=== PATIENT | female | born 2000 | race Caucasian/White ===

== ENCOUNTER 2020-07-03 06:49 | Emergency (ER) | payer MEDICAID ==
[~2020-07-03] VITALS: Ht 157.5 cm; Wt 55.8 kg
[2020-07-03 07:11] VITALS: BP 103/62
--- NOTE | 2020-07-03 07:16 | NUR ---
ARRIVAL PATIENT ARRIVED TO ED8 AMBULATORY, C/O OF SMALL AMOUNT OF VAGINAL BLEEDING THIS MORNING, PATIENT IS APPROX 11 WEEKS , STATES SHE WAS TOLD SHE HAD A SMALL BLEED FROM ONE OF HER OVARIES AND WAS TOLD BY HER OBGYN THAT IT WOULD FIX ITSELF, TODAY SHE NOTICED A SMALL AMOUNT OF BLOOD WHEN SHE CLEANED HERSELF, BECAME CONCERNED AND CAME TO THE ED FOR EVAL, DOCTOR MARÍA NOTIFIED OF PATIENT'S ARRIVAL.
--- NOTE | 2020-07-03 07:24 | NUR ---
ULTRASOUND SONU NOTIFIED OF PATIENT ORDER
--- NOTE | 2020-07-03 07:33 | ER.PDOC ---
General Chief Complaint: less 20 wks Stated Complaint: FEMALE ,ABD PAIN Time seen by MD: 07:00 Source: patient History of Present Illness Initial Comments This 20-year old G2, P1 11-week young lady comes in with complaint of right lower quadrant abdominal pain. She stated she started with some crampy mild pain about midnight last night. She stated when she woke up this morning the pain was more severe. [place] right [place] 's job. She indicated that she had a visit with her OB before leaving home and had a normal heart tones at 168. She was told that the ultraso und was abnormal but she was not quite clear what the abnormal finding were. Patient indicated no complications with her prior . Her baby is now 8 months old. Timing/Duration: this morning Severity/Quality: moderate Location of Pain: abdominal pain, pelvic pain (Patient indicated when she went to the bathroom this morning, she had some blood that was passing from her vagina. She denied any dysuria frequency or urgency that would suggest a urinary tract infection) Vaginal Bleed: abnormal bleeding LMP (females 10-50): (LMP 04/15/2020) Test: clinic Care: clinic Sexual [place] History: single partner Associated Symptoms: abdominal pain Prior symptoms/Treatment: Recenly Seen Allergies: Coded Allergies: No Known Allergies (Unverified , 07/03/20) Past Medical History Medical History: no pertinent history Surgical History: no surgical history Social History Smoking: non-smoker Alcohol Use: none Drug Use: none Review of Systems Genitourinary: see HPI All Other Systems: Reviewed and Negative Physical Exam General Appearance: No Apparent Distress, WD/WN EENT: eyes nml inspection, nml ENT inspection, pharynx nml Neck: nml inspection, non-tender Cardiovascular/Respiratory: Regular Rate, Rhythm, No M/R/G, Normal Peripheral Pulses, No JVD, Normal Breath Sounds, No Respiratory Distress Back: nml inspection Extremities: Normal Range of Motion, Non-Tender, Normal Inspection, No Pedal Edema, No Calf Tenderness, Normal Capillary Refill Neurologic/Psychiatric: powder coater II-XII NML as Tested, No Motor/Sensory Deficits, Alert, Normal Mood/Affect, Oriented x 3 Skin: Normal Color, Warm/Dry Lymphatic: No Adenopathy Results/Orders Results/Orders Orders - DOMINICK DANIEL MD Abo/Rh Type (07/03/20 07:17) Urinalysis (07/03/20 07:17) Saline Lock (07/03/20 07:26) Us Preg Before 14 Wks (07/03/20 07:17) Us Tv-Ob (07/03/20 07:37) Vital Signs Date Time Temp Pulse Resp B/P (MAP) Pulse Ox O2 Delivery O2 Flow Rate FiO2 07/03/20 09:00 98.1 95 18 138/67 (90) 98 Room Air 07/03/20 07:11 98.1 99 18 103/62 (76) 98 Room Air 07/03/20 07:11 98.1 99 18 07/03/20 07:11 98.1 99 18 98 Laboratory Tests Test 07/03/20 07:36 Urine Collection Type UNKNOWN Urine Color YELLOW Urine Appearance CLEAR Urine Bilirubin NEGATIVE (NEGATIVE) Urine Ketones NEGATIVE (NEGATIVE) Urine Specific Smoot 1.020 (1.005-1.030) Urine pH 7.0 (4.5-8.0) Urine Protein NEGATIVE (NEGATIVE) Urine Urobilinogen 0.2 E.U./dL (0.2) Urine Nitrate NEGATIVE (NEGATIVE) Urine Leukocyte Esterase NEGATIVE (NEGATIVE) Urine Glucose (Auto)(UA) NEGATIVE (NEGATIVE) Urine Blood SMALL (NEGATIVE) H Urine RBC 0-2 RBC/HPF (NONE SEEN) Urine WBC NONE SEEN WBC/HPF (0-2) Urine Squamous Epithelial Cells RARE #/HPF (FEW) Urine Bacteria NONE SEEN (NONE SEEN) Blood Bank Test 07/03/20 07:36 Blood Type O POSITIVE Progress Progress UA is WNL. 0-2 RBC/HPF, No WBC. ultrasound shows a small subchorionic hematoma is an incidental finding nothing to be concerned about. Conclusion single live intrauterine . ER DEPART Departure Time of Disposition: 09:16 Disposition: 01 HOME, SELF-CARE Impression: Primary Impression: Discomfort during Condition: Stable Referrals: PCP,UNKNOWN (PCP) PRIMARY CARE PROVIDER Comments you may use tylenol for your discomfort Duration or Time Spent with Pa: 20m DOMINICK DANILE MD July 03, 2020 07:33
--- NOTE | 2020-07-03 07:45 | NUR ---
HEART TONES FTH 163 AT BEDSIDE BY DOCTOR MK PEACOCK
--- NOTE | 2020-07-03 07:46 | NUR ---
ULTRASOUND ULTRASOUND HERE AT THIS TIME.
[2020-07-03 07:58] LABS: BILIRUBIN,URINE NEGATIVE (NEGATIVE); UA COLOR YELLOW
[2020-07-03 07:59] LABS: UROBILINOGEN,URINE 0.2 E.U./dL (0.2)
--- NOTE | 2020-07-03 08:52 | NUR ---
ULTRASOUND PATIENT BACK FROM ULTRASOUND
[2020-07-03 09:00] VITALS: BP 138/67
--- NOTE | 2020-07-03 09:12 | DIREP ---
PROCEDURE:US OB 1ST TRI - TV COMPARISON:None. INDICATIONS: with RL, ABDOMEN PAIN, SPOTTING TECHNIQUE:Transabdominal and endovaginal pelvic ultrasound images were obtained. Endovaginal images were obtained to optimally evaluate the and maternal adnexal structures. FINDINGS: LMP: April 11, 2020, corresponding to an EGA of 11 W 6 D ÁLVARO (LMP): Jan 16, 2021 INTRAUTERINE GESTATIONAL SAC:Present. YOLK SAC: Present. POLE: Present. CRL = 4.7 cm, corresponding to an EGA of 11 W 4 D. US ÁLVARO:Jan 18, 2021 CARDIAC ACTIVITY:Present. 162 bpm. UTERUS:Normal. OVARIES:Not definitely visualized. No adnexal masses noted. CUL-DE-SAC:Normal. OTHER:A small subchorionic hematoma is incidentally noted. Survey of the placental anatomic structure and amniotic fluid could not be performed because of gestational age (<14 weeks). CONCLUSION: Single live intrauterine . Dictated by: [facility] Physician on 07/03/2020 at 08:57 AM ac
== END 2020-07-03 09:22 | disposition home or self-care (01) ==
LOC: ER 06:49
DX: O26.891 Other specified pregnancy related conditions, first trimester (principal); R10.2 Pelvic and perineal pain; Z3A.11 11 weeks gestation of pregnancy
CPT/HCPCS: 36415; 76801; 76817; 81000; 81003; 86900; 99284